=== PATIENT | female | born 1990 | race Caucasian/White ===

== ENCOUNTER 2018-11-21 15:55 | Day surgery (SDC) | payer OTHER ==
--- NOTE | 2018-11-21 17:14 | PCM.PREANE ---
Preanesthetic Assessment - Anesthesia/Transfusion/Family Hx Anesthesia History: Prior Anesthesia Without Reaction Family History of Anesthesia Reaction: No Transfusion History: No Prior Transfusion(s) Intubation History: Unknown - Review of Systems General: No Symptoms Pulmonary: No Symptoms Cardiovascular: No Symptoms Gastrointestinal: No Symptoms Neurological: No Symptoms Other: Reports: None (Other: Bleeding from retained products of conception) - Physical Assessment NPO Status Date: 11/21/18 NPO Status Time: 11:15 (water - last meal was 11/20) Height: 5 ft 7 in Weight: 191 lb ASA Class: 1 Mental Status: Alert & Oriented x3 Airway Class: Mallampati = 2 Dentition: Reports: Normal Dentition Thyro-Mental Finger Breadths: 3 Mouth Opening Finger Breadths: 3 ROM/Head Extension: Full Lungs: Clear to Auscultation, Normal Respiratory Effort Cardiovascular: Regular Rate, Regular Rhythm - Allergies Allergies/Adverse Reactions: Allergies Allergy/AdvReac Type Severity Reaction Status Date / Time No Known Allergies Allergy Verified 11/21/18 15:55 - Blood Blood Available: No Product(s) Available: None - Anesthesia Plan Free Text/Narrative:: GLMA T&S ordered - Acknowledgements Anesthesia Type Planned: General Anesthesia Pt an Appropriate Candidate for the Planned Anesthesia: Yes Alternatives and Risks of Anesthesia Discussed w Pt/Guardian: Yes Pt/Guardian Understands and Agrees with Anesthesia Plan: Yes PreAnesthesia Questionnaire HEENT History: Reports: Other (See Below) Other HEENT History: wears glasses/contacts [employer] History: Reports: Musculoskeletal History: Reports: Fracture Other Musculoskeletal History: hx of fx pinky Neurological History: Reports: Concussion - Past Surgical History Musculoskeletal Surgical History: Reports: Other (See Below) Other Musculoskeletal Surgeries/Procedures:: ACL repair x2 right knee- no hardware - SUBSTANCE USE Smoking Status *Q: Never Smoker Recreational Drug Use History: No - HOME MEDS Home Medications: Home Meds Pnv No.95/Ferrous Fum/Folic AC [ Caplet] 1 tab PO DAILY 11/21/18 [ History]
[2018-11-21] MEDS ORDERED: Lactated Ringers 1,000 ML IV SCH (17:15)
[2018-11-21] MEDS ORDERED: Midazolam 1 MG/ML 2 ML SDV ONE (17:36)
[2018-11-21] MEDS ORDERED: Ketorolac 30 MG/ML SDV ONE (17:36)
[2018-11-21] MEDS ORDERED: Ondansetron 4 MG/2 ML SDV ONE (17:36)
[2018-11-21] MEDS ORDERED: Lidocaine 2% 5 ML SDV ONE (17:36)
[2018-11-21] MEDS ORDERED: fentaNYL 100 MCG/2 ML SDV ONE (17:36)
[2018-11-21] MEDS ORDERED: Propofol 200 MG/20 ML SDV ONE (17:36)
[2018-11-21] MEDS ORDERED: Doxycycline 200 MG in Dextrose 5% in Water 250 ML IV ONE ×2 (17:42)
[2018-11-21] MEDS ORDERED: Doxycycline 100 MG Cap PO ONE (17:42)
[2018-11-21] MEDS ORDERED: Atropine 0.4 MG/ML 20 ML MDV IVPUSH PRN (18:31)
[2018-11-21] MEDS ORDERED: Naloxone 0.4 MG/ML Syringe IVPUSH PRN (18:31)
[2018-11-21] MEDS ORDERED: fentaNYL 100 MCG/2 ML SDV IVPUSH PRN (18:31)
[2018-11-21] MEDS ORDERED: EPINEPHrine 1 MG/ML 30 ML MDV IVPUSH PRN (18:31)
[2018-11-21] MEDS ORDERED: 50% Dextrose in Water 50 ML Syringe IVPUSH PRN (18:31)
[2018-11-21] MEDS ORDERED: Atropine 0.4 MG/ML SDV IVPUSH PRN (18:31)
--- NOTE | 2018-11-21 19:10 | PCM.OPNOTE ---
- General Post-Op/Procedure Note Date of Surgery/Procedure: 11/21/18 Operative Procedure(s): Suction, Dilatation and currettage Findings: Moderate products of conception Pre Op Diagnosis: Retained products of conception Post-Op Diagnosis: Retained products of conception Anesthesia Technique: Other (see below) (General) Primary Surgeon: Cristobal Navarrete Anesthesia Provider: Yen Bergeron Pathology: Retained products of conception Fluid Replacement, Intraop: 1,000 EBL in mLs: 100 Complications: None Condition: Good
--- NOTE | 2018-11-21 19:16 | PCM.POSTAN ---
POST ANESTHESIA ASSESSMENT - MENTAL STATUS Mental Status: Alert, Oriented - RESPIRATORY Respiratory Status: Respiratory Rate WNL, Airway Patent, O2 Saturation Stable - CARDIOVASCULAR CV Status: Pulse Rate WNL, Blood Pressure Stable - GASTROINTESTINAL GI Status: No Symptoms - PAIN Pain Score: 0 - POST OP HYDRATION Hydration Status: Adequate & Stable - OBSERVATIONS Free Text/Narrative:: Pt denies any pain or nausea at this time. VSS.
--- NOTE | 2018-11-21 19:26 | PCM48HPAN ---
Post Anesthesia Note - EVALUATION WITHIN 48HRS OF ANESTHETIC Vital Signs in Normal Range: Yes Patient Participated in Evaluation: Yes Respiratory Function Stable: Yes Airway Patent: Yes Cardiovascular Function Stable: Yes Hydration Status Stable: Yes Pain Control Satisfactory: Yes Nausea and Vomiting Control Satisfactory: Yes Mental Status Recovered: Yes Resp Rate: 14 - COMMENTS/OBSERVATIONS Free Text/Narrative:: VSS. No apparent anesthesia complications.
--- NOTE | 2018-11-22 03:09 | OR ---
SURGEON: FARHAT NAVARRETE DATE OF PROCEDURE: 11/21/2018 PREOPERATIVE DIAGNOSIS: Missed at 10 weeks 5 days. POSTOPERATIVE DIAGNOSIS: Missed at 10 weeks 5 days. PROCEDURE: Suction, dilatation, and curettage. ESTIMATED BLOOD LOSS: 100 mL. INTRAVENOUS FLUIDS: 1000 mL. ANESTHESIA: General. SPECIMENS: Products of conception. COMPLICATIONS: None. FINDING: A normal-sized anteverted uterus. Cervix was closed. Moderate amount of conception was retrieved. CONDITION: Stable to recovery room. BRIEF HISTORY ABOUT THE PATIENT: The patient was 16 weeks , however, had an ultrasound done during the visit and was noted to have a missed at 10 weeks 5 days. She was counseled for different options, medical/conservative. She wanted medical option. She had Cytotec placed without any result. She had another repeat Cytotec placed again with some passage of product. She had followup ultrasound done which showed some retained products of conception. At this point, she was counseled again for surgical intervention which she accepted. She was explained the risks, benefits, and alternatives, and she decided to proceed. DESCRIPTION OF PROCEDURE: The patient was taken to the operating room where general anesthesia was administered without difficulty. She was placed in the dorsal lithotomy position with the Sterling stirrups, and examination under anesthesia revealed a 10 - week size uterus with the cervix closed. The patient was prepared and draped in the normal sterile fashion. A weighted speculum was inserted into the posterior aspect of the vagina. An Allis tenaculum was used to grasp the anterior lip of the cervix. The uterus was sounded. The uterus was not found. The cervix was dilated with Hegar dilator to accommodate size 9 suction curved curette, then 9 suction was advanced to the uterine fundus. The suction was then started, and the product of conception was evacuated with the curette in the rotating outward movement. A sharp curettage was then performed with a large curette. The suction was then reintroduced to clear the uterus. The Allis was then removed, and good hemostasis was noted. The patient tolerated the procedure well. The instrument and sponge counts were correct x2. The patient was awakened from general anesthesia and taken to recovery room in a stable condition. The patient was, however, premedicated with 200 mg of doxycycline before the procedure. The patient will follow up with Dr. Navarrete in 2 weeks in the clinic. All instrument and pad counts were correct x2. BERTA / CLIFTON /[id number]
== END 2018-11-21 20:05 | disposition home or self-care (01) ==
LOC: MW.SDS 15:55 → MW.MS 16:59 → MW.SDS 20:05
PROVIDERS: ATTEND Obstetrics & Gynecology
DX: O02.1 Missed abortion (principal); N85.4 Malposition of uterus; Z79.899 Other long term (current) drug therapy
CPT/HCPCS: 36415; 59820; 86850; 86900; 86901; A9270; J1885; J2001; J2250; J2405; J2704; J3010; J7120; 88305